=== PATIENT | male | born 1955 | race Caucasian/White ===

== ENCOUNTER 2019-08-25 11:33 | Emergency (ER) | payer SELFPAY ==
[2019-08-25] MEDS ORDERED: KETOROLAC 60 MG/2 ML VIAL IM ONE (15:28)
[2019-08-28 15:44] LABS: HEMOGLOBIN 14.3 g/dL (12.0-18.0); MEAN CORPUSCULAR HEMOGLOBIN 31 pg (27-31); MEAN CORPUSCULAR HGB CONC 33 g/dL (33-37); MEAN CORPUSCULAR VOLUME 94.6 fL (80-94); RED BLOOD CELL COUNT(AUTO) 4.54 MIL/uL (4.20-6.10)
[2019-08-28 15:45] LABS: BASOPHILS % (AUTO) 0.3 % (0.0-2.0); EOSINOPHILS % (AUTO) 0.2 % (0.0-4.0); LYMPHOCYTES # (AUTO) 1.7 K/uL (2.0-11.5); MONOCYTES # (AUTO) 0.8 K/uL (0.8-1.0); MONOCYTES % (AUTO) 9.5 % (1.7-9.3); NEUTROPHILS # (AUTO) 5.9 K/uL (1.8-7.7); PLATELET COUNT (AUTO) 179 K/uL (140-450)
[2019-08-28 15:46] LABS: WHITE BLOOD COUNT (AUTO) 8.4 K/uL (4.8-10.8)
[2019-08-30 21:49] LABS: ANION GAP 12.2 (8-16); CARBON DIOXIDE 28.4 mmol/L (21-32); POTASSIUM 3.6 mmol/L (3.5-5.1)
[2019-08-30 21:50] LABS: ALBUMIN 3.4 g/dL (3.4-5.0); CREATININE 0.8 mg/dL (0.7-1.3); TOTAL BILIRUBIN 0.9 mg/dL (0.0-1.0)
== END 2019-08-25 16:05 | disposition home or self-care (01) ==
LOC: MED 11:33
DX: E11.42 Type 2 diabetes mellitus with diabetic polyneuropathy (principal); N50.811 Right testicular pain; N50.812 Left testicular pain; M79.652 Pain in left thigh; I10 Essential (primary) hypertension
CPT/HCPCS: 36415; 71045; 80053; 81002; 83036; 83880; 84484; 85025; 99284; J1885; Q0092